=== PATIENT | male | born 1995 | race African-American/Black ===

== ENCOUNTER 2019-11-06 20:12 | Emergency (ER) | payer SELFPAY ==
[2019-11-06] MEDS ORDERED: IBUPROFEN 800 MG TABLET PO ONE (20:22)
[2019-11-06] MEDS ORDERED: DIPH/PERTUSS(ACELL)/TETANUS VAC/PF 0.5 ML SYR (>=10YO) IM ONE (20:22)
[2019-11-06 20:23] VITALS: BP 134/66
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
--- NOTE | 2019-11-06 21:17 | RADIOLOGY REPORT (SQ) ---
XR FINGERS CLINICAL STATEMENT: screw through middle finger COMPARISON: None FINDINGS: Bony alignment is anatomic. There is no fracture or dislocation. The soft tissues are unremarkable. No radiopaque foreign body. IMPRESSION: No fracture. No radiopaque foreign body.
[2019-11-06] MEDS ORDERED: CEPHALEXIN 500 MG CAPSULE PO ONE (21:36)
== END 2019-11-06 22:14 | disposition left against medical advice (07) ==
LOC: ER 20:12
DX: Z53.21 Procedure and treatment not carried out due to patient leaving prior to being seen by health care provider (principal); S69.91XA Unspecified injury of right wrist, hand and finger(s), initial encounter; W29.8XXA Contact with other powered hand tools and household machinery, initial encounter
CPT/HCPCS: 90715; 99283

== ENCOUNTER 2020-07-30 08:50 | Emergency (ER) | payer OTHER ==
[2020-07-30] MEDS ORDERED: KETOROLAC TROMETHAMINE 60 MG/2 ML SDV IM ONE (10:19)
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
[2020-07-30 12:01] VITALS: BP 120/84
== END 2020-07-30 11:59 | disposition home or self-care (01) ==
LOC: ER 08:50
DX: M54.2 Cervicalgia (principal); M54.9 Dorsalgia, unspecified; M79.10 Myalgia, unspecified site; V43.52XA Car driver injured in collision with other type car in traffic accident, initial encounter; M47.812 Spondylosis without myelopathy or radiculopathy, cervical region
CPT/HCPCS: 99284; 96372; 72050; 71046; J1885